=== PATIENT | female | born 1990 | race African-American/Black ===

== ENCOUNTER 2020-04-09 13:15 | Emergency (ER) | payer OTHER, SELFPAY ==
[2020-04-09 13:27] VITALS: BP 147/96; PULSE 90; RESP 16; TEMP 36.6; O2SAT 100; BMI 21.9
--- NOTE | 2020-04-09 13:36 | ED_ITS ---
HPI - Female Genitourinary General Chief complaint: Urogenital-Female Stated complaint: bladder infection? Time Seen by Provider: 04/09/20 13:34 History of Present Illness HPI Narrative: Patient complains of 2 weeks of irritation with urination meaning it hall she is going more frequently and the only discomfort is during urination, there is no fever no nausea no vomiting, no blood in the urine, no abdominal pain or back pain, no recent illness This is been going on for 2 weeks and it is mild and she has not tried any treatments yet Related Data Previous Rx's Medication Instructions Recorded nitrofurantoin monohyd/m-cryst 100 mg PO Q12H 5 Days #10 cap 04/09/20 [Macrobid] phenazopyridine [Pyridium] 200 mg PO TID PRN #6 tab 04/09/20 Allergies Allergy/AdvReac Type Severity Reaction Status Date / Time No Known Allergies Allergy Verified 04/09/20 13:36 Review of Systems Review of Systems: Review of symptom systems is positive for burning with urination and urinary frequency There is no fever no chills no nausea no vomiting no back pain no abdominal pain no pelvic pain no blood in the urine no leg swelling no rash Yes all other systems are reviewed and are negative PMFSH Past Medical History Source: nursing notes reviewed Medical History (Updated 04/09/20 @ 14:35 by RASHAWN Bates) No known health problems Social History Social History Advance Directives: No Advance Directives Information Provided: Yes Physical Exam Vital Signs: Vital Signs: Last Vital Signs Temp 97.8 F 04/09/20 13:27 Pulse 90 04/09/20 13:27 Resp 16 04/09/20 13:27 BP 147/96 H 04/09/20 13:27 Pulse Ox 100 04/09/20 13:27 Body Mass Index 21.9 Elevated blood pressure is noted Patient is comfortable, a and O x3, no acute distress The neck is supple respiratory there is no respiratory distress abdomen is soft and nontender the back there is no CVA tenderness the skin exam there is no rashes Extremities there is no edema The neuro is A&O x3 no focal deficits MDM - Female Genitourinary Lab Data Attestation: I reviewed the patient's lab results. Lab results narrative: UCG and urinalysis were negative, but because patient had classic UTI symptoms I will treat with Macrobid and Pyridium as well as added a chlamydia test Patient is advised to follow with primary doctor for further evaluation of dysuria and for evaluation of possible high blood pressure Labs: Lab Results 04/09/20 04/09/20 Range/Units 13:41 14:00 Urine Color STRAW Urine Appearance CLEAR Urine pH 6.5 (5.0-8.0) Ur Specific [place] 1.010 (1.005-1.025) Urine Protein NEG (NEG-TRACE) MG/DL Urine Glucose (UA) NEG (NEG) MG/DL Urine Ketones NEG (NEG) MG/DL Urine Blood TRACE (NEG) Urine Nitrite NEG (NEG) Ur Leukocyte Esterase NEG (NEG) Urine RBC 0-2 (0) /HPF Urine WBC 0-2 (0-4) /HPF Ur Squamous Epith Cells 1+ /LPF Urine Bacteria NONE /LPF Urine Test NEGATIVE (NEGATIVE) Discharge Plan Discharge Clinical Impression: Dysuria Patient Disposition: Home, Self-Care Additional Instructions: Your urine test did not show lab evidence of a urinary tract infection but because you have classic symptoms we are treating with antibiotic and a medication Pyridium which often relieves bladder discomfort Return any time for vomiting fever any worse condition or any concerns Your blood pressure was elevated today so we advise follow with the primary care doctor for further evaluation as well as recommend get a home blood pressure cuff and keep a log of the readings which will help determine whether or not you actually have high blood pressure Prescriptions: New nitrofurantoin monohyd/m-cryst [Macrobid] 100 mg capsule 100 mg PO Q12H 5 Days Qty: 10 RF: 0 phenazopyridine [Pyridium] 200 mg tablet 200 mg PO TID PRN (Reason: pain with urination) Qty: 6 RF: 0 Interventions: ED Discharge Assessment Last Done: 04/09/20 14:46 Discharge Date/Time: 04/09/20 14:46
[2020-04-09 13:51] LABS: Glucose Urine UA NEG (NEG); Leukocyte Esterase Urine NEG (NEG); Nitrite Urine NEG (NEG); PH 6.5 (5.0-8.0); Urine Blood TRACE (NEG); Urine Ketones NEG (NEG); Urine Protein NEG (NEG-TRACE)
[2020-04-09 13:52] LABS: Appearance Urine CLEAR; Color Urine STRAW
[2020-04-09 14:05] LABS: UPreg QC Valid YES; Urine Pregnancy NEGATIVE (NEGATIVE)
[2020-04-09 14:07] LABS: RBC Urine 0-2 /HPF (0); Squamous Epithelial Cell Urine 1+ /LPF; WBC Urine 0-2 /HPF (0-4)
[2020-04-09 17:41] LABS: CT PCR NOT DETECTED (Not Detect.); NG PCR NOT DETECTED (Not Detect.)
== END 2020-04-09 14:46 | disposition home or self-care (01) ==
PROVIDERS: Physician Assistant Medical; Emergency Provider Emergency Medicine
DX: R30.0 Dysuria (principal); Z79.899 Other long term (current) drug therapy
CPT/HCPCS: 81001; 81025; 87491; 87591; 99283

== ENCOUNTER 2021-09-13 08:38 | Emergency (ER) | payer OTHER, SELFPAY ==
[2021-09-13 09:01] VITALS: BP 131/87; PULSE 89; RESP 16; TEMP 36.8; O2SAT 100; BMI 26.6
--- NOTE | 2021-09-13 09:20 | ED_ITS ---
HPI - Female Genitourinary General Chief complaint: Urogenital-Female Stated complaint: bladder infection Time Seen by Provider: 09/13/21 08:59 Source: patient Mode of arrival: ambulatory Limitations: no limitations History of Present Illness HPI Narrative: 31-year-old female with history of frequent urinary tract infections presents to the ER with complaints of having a bladder infection. She reports 3 weeks of dysuria, foul-smelling urine, urinary frequency and voiding only small amounts. She also developed low back pain intermittently as well and is concerned the infection may have gone to her kidneys because her symptoms have been present for so long. She denies fever, nausea, vomiting, chills, abdominal pain. She reports a history of urinary tracts, more frequent than I can count. She has never seen a urologist and has never been on prophylaxis before. She states it usually occurs after sexual activity despite or urinating after sex. She denies any vaginal discharge or concern for STI. MD elicited complaint: UTI Pertinent past history: recurrent UTIs Onset (ago): week(s) (3) Location of symptoms: external genitalia and suprapubic Severity: moderate Female Urogenital Radiation: Non-Radiating Severity scale (1-10): 5 Quality of pain: burning Consistency: intermittent Vaginal discharge: none Vaginal bleeding: none Urinary symptoms: Dysuria, Urgency, Frequency and Foul Smelling Urine Exacerbating factors: urination Relieving factors: none Associated symptoms: back pain Treatment prior to arrival: none Sexual activity: Yes Patient : No Related Data Previous Rx's Medication Instructions Recorded nitrofurantoin 100 mg PO Q12H 5 Days #10 cap 04/09/20 monohydrate/macrocrystals 100 mg capsule (Macrobid) phenazopyridine 200 mg tablet 200 mg PO TID PRN #6 tab 04/09/20 (Pyridium) nitrofurantoin 100 mg PO Q12H 7 Days #14 cap 09/13/21 monohydrate/macrocrystals 100 mg capsule (Macrobid) Allergies Allergy/AdvReac Type Severity Reaction Status Date / Time No Known Allergies Allergy Verified 04/09/20 13:36 Review of Systems Review of Systems: Constitutional: No Fever, No Chills Cardiovascular: No Chest Pain, No SOB Respiratory: No Cough, No Sputum Gastrointestinal: No Nausea, No Vomiting, No Diarrhea, No abdominal Pain Genitourinary: + Dysuria, + Urinary Frequency, No Hematuria Musculoskeletal: No joint pain, No Myalgias Skin: No Skin Lesions, No rash Neuro: No Weakness, No Dizziness, No Headache Psych: No Anxiety/Panic, No Depression Heme/Lymph: No Bruising, No Lymphadenopathy Endocrine: No Polyuria, No Polydipsia [facility] Past Medical History Medical History (Updated 09/13/21 @ 10:03 by RASHAWN Lott) No known health problems UTI (urinary tract infection) Social History Social History Advance Directives: No Advance Directives Information Provided: No Patient : No Physical Exam Vital Signs: Vital Signs: Last Vital Signs Temp 98.2 F 09/13/21 09:01 Pulse 89 09/13/21 09:01 Resp 16 09/13/21 09:01 BP 131/87 09/13/21 09:01 Pulse Ox 100 09/13/21 09:01 BMI result Body Mass Index 26.6 Appearance: Alert. Oriented X3. No acute distress. HEENT: normal external inspection Neck: Normal inspection. Neck supple. CVS: Normal heart rate and rhythm. Pulses normal. Respiratory: No respiratory distress. Abdomen: Soft and nontender. +BS x4. Pelvic deferred. Skin: Skin warm and dry. Normal skin color. Normal skin turgor. No rashes. Extremities: Normal inspeciton Neuro: Oriented X 3. Grossly normal nonfocal Course Course Course Narrative: 31-year-old female presents to the ER with 3 weeks of urinary symptoms. She states it feels similar to her prior UTIs. She has no systemic signs of infection like fever chills nausea or vomiting. She has no abdominal pain. She is appears well on examination. Will send UA for further evaluation. Reevaluation(s) Reevaluation #1: UA showing positive nitrites. Will treat with Macrobid, she has gotten this in the past with good success. Will also refer to urology given her frequent and recurrent UTIs. MDM - Female Genitourinary Lab Data Labs: Lab Results 09/13/21 Range/Units 09:20 Urine Color YELLOW Urine Appearance HAZY Urine pH 6.0 (5.0-8.0) Ur Specific [place] 1.025 (1.005-1.025) Urine Protein NEG (NEG-TRACE) MG/DL Urine Glucose (UA) NEG (NEG) MG/DL Urine Ketones NEG (NEG) MG/DL Urine Blood TRACE (NEG) Urine Nitrite POS H (NEG) Ur Leukocyte Esterase NEG (NEG) Urine RBC 1-4 (0) /HPF Urine WBC 1-4 (0-4) /HPF Ur Squamous Epith Cells 4+ /LPF Urine Bacteria 4+ /LPF Critical Care Time Critical Care Time Critical Care Time: No Discharge Plan Discharge Clinical Impression: Urinary tract infection Patient Disposition: Home, Self-Care Instructions: Urinary Tract Infection in Women (DC) Additional Instructions: Take the prescribed antibiotic as directed, complete the entire course. Recommend following up with Urology for further evaluation of your recurrent urinary tract infections. Prescriptions: New nitrofurantoin monohyd/m-cryst [Macrobid] 100 mg capsule 100 mg PO Q12H 7 Days Qty: 14 0RF Rx Instructions: must administer with a meal/food No Action nitrofurantoin monohyd/m-cryst [Macrobid] 100 mg capsule 100 mg PO Q12H 5 Days Qty: 10 0RF Rx Instructions: must administer with a meal/food phenazopyridine [Pyridium] 200 mg tablet 200 mg PO TID PRN (Reason: pain with urination) Qty: 6 0RF Referrals: Bakari Cordova MD [Physician] - 2 weeks (recurrent UTIs)
[2021-09-13 09:29] LABS: Appearance Urine HAZY; Color Urine YELLOW; Glucose Urine UA NEG (NEG); Leukocyte Esterase Urine NEG (NEG); Nitrite Urine POS (NEG); Specific Gravity - Urine 1.025 (1.005-1.025); UACC Culture Trigger YES; Urine Blood TRACE (NEG); Urine Ketones NEG (NEG); Urine Protein NEG (NEG-TRACE)
[2021-09-13 09:39] LABS: Squamous Epithelial Cell Urine 4+ /LPF
[2021-09-13 09:40] LABS: Bacteria Urine 4+ /LPF
== END 2021-09-13 10:22 | disposition home or self-care (01) ==
PROVIDERS: Physician Assistant; Emergency Provider Emergency Medicine; PCP Internal Medicine
DX: N39.0 Urinary tract infection, site not specified (principal); R30.0 Dysuria; M54.50 Low back pain, unspecified; Z79.899 Other long term (current) drug therapy
CPT/HCPCS: 81001; 87086; 87088; 87186; 99283; 99284

== ENCOUNTER 2022-09-30 09:30 | Outpatient (REF) | payer OTHER, SELFPAY ==
[2022-09-30 09:55] LABS: MANUAL DIFF FLAG NO
[2022-09-30 10:39] LABS: Basophils Percent Auto 0.3 % (0-2); Eosinophils Absolute Auto 0.1 X10*3/uL (0.0-0.4); Eosinophils Percent Auto 1.8 % (0-4); Hematocrit 37.2 % (37.0-47.0); Hemoglobin 12.6 g/dl (12.0-16.0); Imm Gran Abs Auto 0.01 X10*3/uL (0.00-0.03); Imm Gran Pct Auto 0.3 % (0.0-0.4); Lymphocytes Absolute Auto 1.4 X10*3/uL (1.2-4.9); Lymphocytes Percent Auto 34.5 % (20-40); Mean Corpuscular HGB Conc 33.9 g/dl (31.0-35.0); Mean Corpuscular Hemoglobin 30.7 pg (27.0-33.0); Mean Corpuscular Volume 90.5 fL (80.0-98.0); Mean Platelet Volume 10.3 fL (9.4-12.3); Monocytes Absolute Auto 0.3 X10*3/uL (0.1-1.2); Monocytes Percent Auto 8.6 % (2-11); Neutrophils Absolute Auto 2.2 x10*3/uL (2.0-8.3); Neutrophils Percent Auto 54.5 % (45-73); Platelet Count 267 X10*3/uL (160-400); Red Blood Count 4.11 X10*6/uL (4.20-5.50); Red Cell Distribution Width 12.6 % (11.0-16.0); White Blood Count 3.9 X10*3/uL (4.8-10.8)
[2022-09-30 11:57] LABS: HBS Num1 158.99 mIU/mL (0-7.99); HBc Num1 0.08 S/CO (0.00-0.79); HBsAGNum1 0.34 S/CO (0.00-0.99); HIV AB/AG Nonreactive (Nonreactive); HIV Num 1 0.07 S/CO (0.00-0.99); Hepatitis A Antibody IgM 0.16 Index (0-0.79); Hepatitis B Core Antibody Nonreactive (Nonreactive); Hepatitis B Surface Antigen Negative (Negative); ~HepC Num1 0.14 S/CO (0.00-0.79); ~Hepatitis A Antibody IgM Nonreactive (Nonreactive); ~Hepatitis B Surface Antibody REACTIVE (Nonreactive); ~Hepatitis C Antibody Nonreactive (Nonreactive)
[2022-09-30 12:00] LABS: Syphilis Screen Reactive (Nonreactive)
[2022-09-30 12:31] LABS: Alanine Aminotransferase 23 U/L (0-31); Albumin Level 4.5 g/dL (3.5-5.0); Alkaline Phosphatase 55 U/L (39-117); Anion Gap 12 (12-20); Aspartate Amino Transferase 27 U/L (5-31); Bilirubin Total 0.7 mg/dL (0.0-1.0); Blood Urea Nitrogen 7 mg/dL (9-16); Calcium 9.7 mg/dL (8.4-10.2); Carbon Dioxide 26 mmol/L (22-29); Chloride 106 mmol/L (96-108); Cholesterol 175 mg/dL; Estimated Glomerular Filt Rate > 60; Glucose Fasting 102 mg/dL (60-99); HDL Cholesterol 63 mg/dL; LDL Cholesterol Calculated 99 mg/dl; Potassium 4.2 mmol/L (3.3-5.1); Sodium 140 mmol/L (135-145); Triglycerides 66 mg/dL
[2022-10-05 14:24] LABS: RPR Quantitative Non-Reactive (Nonreactive)
[2022-10-05 14:25] LABS: T.Pallidum Particle Agg Test Non-Reactive (Nonreactive)
== END 2022-09-30 09:31 | disposition home or self-care (01) ==
LOC: HO.LAB 09:30
PROVIDERS: PCP Internal Medicine; Visit Provider Internal Medicine
DX: Z00.00 Encounter for general adult medical examination without abnormal findings (principal); Z11.3 Encounter for screening for infections with a predominantly sexual mode of transmission; Z11.4 Encounter for screening for human immunodeficiency virus [HIV]; N92.6 Irregular menstruation, unspecified
CPT/HCPCS: 36415; 80053; 80061; 85025; 86592; 86704; 86706; 86709; 86780; 86803; 87340; 87389

== ENCOUNTER 2023-01-30 12:43 | Outpatient (AMB) | payer OTHER, SELFPAY ==
[2023-01-30 12:59] VITALS: BMI 23.6
--- NOTE | 2023-01-30 12:59 | MHC.OFFVIS ---
Intake Vital Signs 01/30/23 12:59 Height 5 ft 6 in Weight 146 lb BMI 23.6 Intake Visit Reasons: New patient Annual/DO NOT RS Intake Note: pain with intercourse she says it's uncomfortable. Store Consultant Required: No Information Interpreted: non-clinical & clinical Email Deployment Specialist: Email Deployment Specialist Present ([employer]) Allergies No Known Allergies Allergy (Verified 01/30/23 13:02) Medication List - Last Reconciled 01/30/23 by Lakisha Francois CNM No Known Home Meds Is last menstrual period known: Yes Last menstrual period: 01/25/23 Post menopausal: No HPI New patient Annual/DO NOT RS HPI Details Patient is here for gynaecological oncologist annual exam she used to get her gynaecological oncologist care in the [place] area. She has 1 child who delivered here at [facility] 11 years ago. She is sexually active but she uses condoms for control. She would like STI testing though she is not particularly concerned she did have STI testing with Dr. Elkins in September and had a positive screen for syphilis but the confirmatory test came back negative which confused her she. She also has a history of HSV though not for several years she maybe gets 1 outbreak a year now she usually calls for prescription she does not have any Valtrex at the moment. She just got over her. She has never had an abnormal Pap smear.. Was concerned about her left breast sometimes when she takes her bra off she notes that the skin puckers in a certain way but then after few minutes it looks like the other breast again she does not have any masses that she can palpate. [facility] Medical History (Updated 01/30/23 @ 13:53 by Lakisha Francois CNM) No known health problems Overweight (BMI 25.0-29.9) Physical exam UTI (urinary tract infection) Surgical History No pertinent past surgical history Family History Mother Anxiety Mental health disorder Essential hypertension Father No problems noted. Social History Housing: Apartment Alcohol intake: current Alcohol intake frequency: a few times a month Alcohol type: hard liquor Patient Tobacco Use Status: Current everyday Tobacco user Tobacco use type: Cigarette Cigarettes Per Day: 2 e-Cigarette/Vaping Use: Never Used Second Hand Smoke Exposure: No service: No Current occupational status: employed Current occupational exposures/hazards: No Cognitive needs: No Hearing needs: No Vision needs: No Female Reproductive History Menstrual Age of Menarche: 12 Duration of menses: 6-7 days Date of last menstrual period: 01/25/23 control method: none Total pregnancies: 1 Full term: 1 Number of Living Children: 1 Date of last pap smear: 09/29/13 (negative) History of STI: Yes Physical Exam Vital Signs: BMI result Body Mass Index 23.6 Const General: healthy appearing, comfortable, no acute distress, well developed and alert Nutritional Appearance: average body habitus Orientation/consciousness: patient oriented x3 Limitations: no limitations HEENT Head: Yes normocephalic Neck Neck: Yes normal visual inspection Chest Chest palpation & inspection: normal inspection of the chest Breast/axilla inspection: normal inspection of the breasts and normal inspection of the axillae Breast/axilla palpation: normal palpation of the breasts and normal palpation of the axillae Resp Effort & Inspection: normal respiratory effort GI Inspection: Yes normal to inspection, No Abdominal wall edema and No distended Palpation (GI): Soft to palpation and nontender Other: External exam within normal limits vagina pink moist normally rugated cervix is multiparous midposition to anteverted uterus is retroverted mobile nontender adnexa nontender good tone with Kegel normal scant clear mucus. General: Yes bladder normal to palpation External Female Exam: normal external appearance and normal appearance of the urethra Speculum Exam - Vagina: normal appearance of the vagina, normal palpation and normal vaginal discharge Speculum Exam - Cervix: normal appearance of the cervix, normal palpation and nontender Bimanual exam- vagina & uterus: normal bimanual exam, normal palpation, uterine size normal, bladder normal to palpation, consistency normal, normal palpation, uterine mobility normal, uterine shape normal, No Cervical tenderness present, non-tender and no cervical motion tenderness Bimanual Exam- Adnexa, other: normal adnexae, no masses, normal and No adnexal tenderness Neuro General: patient oriented x3 Assessment & Plan Assessment & Plan (1) Screen for STD (sexually transmitted disease): Code(s): Z11.3 - Encounter for screening for infections with a predominantly sexual mode of transmission (2) Screening for cervical cancer: Code(s): Z12.4 - Encounter for screening for malignant neoplasm of cervix (3) Recurrent HSV (herpes simplex virus): Comment: occ , maybe 1/yr, rx valtrex prn Code(s): B00.9 - Herpesviral infection, unspecified (4) Syphilis: Comment: Confirmatory test was negative. Reviewed with patient. Code(s): A53.9 - Syphilis, unspecified (5) Overweight (BMI 25.0-29.9): Comment: Has lost weight; is now within normal BMI range Code(s): E66.3 - Overweight (6) Breast cancer screening: Comment: Patient occasionally gets puckering after checking brought off but it reverts to normal soon after. No masses palpated no puckering today. Patient will keep an eye on changes and call for concerns. Code(s): Z12.39 - Encounter for other screening for malignant neoplasm of breast Plan -----Discussed in this visit the following: healthy balanced diet, regular and consistent exercise, getting recommended health screens, doing the best she can for her particular health concerns, kegel exercises, pap smear screening and followup recommendations, mammography screening and SBE, normal changes in cycles in her life stage--- . Reviewed her previous positive tPA and negative RPR testing for syphilis and reviewed that this means the confirmatory test was negative. Reviewed her history of HSV it is a rare occurrence for an outbreak perhaps once a year now reviewed that she may take Valtrex for 3-5 days depending on how long the outbreak lasts and I sent a prescription for 30 tablets that she can have at her despite bows all for p.r.n. use. Reviewed that condoms are in fact a method of control and can work very well when used consistently and they help protect her from STIs as well. Reviewed her concerns about her breasts. Careful exam was done revealing bilaterally is similar and symmetrical breast tissue firmer in the upper right outer quadrant further left breast and the upper left outer quadrant for the right breast both feel symmetrical within normal limits and there is no undue skin puckering or peau de orange changes or masses. Patient is going to keep an eye on what she experiences and take a picture of it and if something does not resolve she will call either us or her primary to have it evaluated. Orders: Orders Hepatitis B Surface Antigen Today Z11.3 - Encounter for screening for infections with a predominantly sexual mode of transmission, Z12.4 - Encounter for screening for malignant neoplasm of cervix Hepatitis C Antibody Today Z11.3 - Encounter for screening for infections with a predominantly sexual mode of transmission, Z12.4 - Encounter for screening for malignant neoplasm of cervix HIV Ab/Ag Today Z11.3 - Encounter for screening for infections with a predominantly sexual mode of transmission, Z12.4 - Encounter for screening for malignant neoplasm of cervix Syphilis Screen Today Z11.3 - Encounter for screening for infections with a predominantly sexual mode of transmission, Z12.4 - Encounter for screening for malignant neoplasm of cervix Bacterial Vaginosis Panel Today [id number] - Encounter for gynecological examination (general) (routine) without abnormal findings CT NG by PCR Today [id number] - Encounter for gynecological examination (general) (routine) without abnormal findings Pap Smear Today [id number] - Encounter for gynecological examination (general) (routine) without abnormal findings Medications: New valacyclovir take for 3-5 days for outbreaks 1,000 mg PO DAILY 30 tabs 0RF Coding Level of Care Code New Pt Prev Care [id number] Diagnoses Screen for STD (sexually transmitted disease) Z11.3 Screening for cervical cancer Z12.4 Recurrent HSV (herpes simplex virus) B00.9 Syphilis A53.9 Overweight (BMI 25.0-29.9) E66.3 Breast cancer screening Z12.39
== END 2023-01-30 13:53 | disposition home or self-care (01) ==
PROVIDERS: Visit Provider Advanced Practice Midwife
DX: Z01.419 Encounter for gynecological examination (general) (routine) without abnormal findings (principal); Z11.3 Encounter for screening for infections with a predominantly sexual mode of transmission; B00.9 Herpesviral infection, unspecified; A53.9 Syphilis, unspecified; E66.3 Overweight; Z12.39 Encounter for other screening for malignant neoplasm of breast
CPT/HCPCS: 99385

== ENCOUNTER 2023-01-30 12:43 | Outpatient (REF) | payer OTHER, SELFPAY ==
[2023-01-31 09:43] LABS: CT PCR NOT DETECTED (Not Detect.); NG PCR NOT DETECTED (Not Detect.)
[2023-01-31 12:07] LABS: BV Int Neg Control Negative (Negative); BV Int Pos Control Positive (Positive)
[2023-02-04 18:49] LABS: HPV mRNA E6/E7 rflx Not Detected (Not Detected)
== END 2023-01-30 12:44 | disposition home or self-care (01) ==
LOC: HO.LNP 12:43
PROVIDERS: Visit Provider Advanced Practice Midwife
DX: Z01.419 Encounter for gynecological examination (general) (routine) without abnormal findings (principal); Z11.51 Encounter for screening for human papillomavirus (HPV); Z11.3 Encounter for screening for infections with a predominantly sexual mode of transmission
CPT/HCPCS: 0353U; 87480; 87510; 87624; 87660; 88142

== ENCOUNTER 2023-01-30 13:57 | Outpatient (REF) | payer OTHER, SELFPAY ==
[2023-01-30 14:16] LABS: MANUAL DIFF FLAG NO
[2023-01-30 14:24] LABS: Basophils Percent Auto 0.2 % (0-2); Eosinophils Percent Auto 0.8 % (0-4); Hematocrit 38.7 % (37.0-47.0); Hemoglobin 13.6 g/dl (12.0-16.0); Imm Gran Abs Auto 0.01 X10*3/uL (0.00-0.03); Imm Gran Pct Auto 0.2 % (0.0-0.4); Lymphocytes Absolute Auto 1.4 X10*3/uL (1.2-4.9); Lymphocytes Percent Auto 28.7 % (20-40); Mean Corpuscular HGB Conc 35.1 g/dl (31.0-35.0); Mean Corpuscular Hemoglobin 31.1 pg (27.0-33.0); Mean Corpuscular Volume 88.6 fL (80.0-98.0); Mean Platelet Volume 9.8 fL (9.4-12.3); Monocytes Absolute Auto 0.3 X10*3/uL (0.1-1.2); Monocytes Percent Auto 6.6 % (2-11); Neutrophils Absolute Auto 3.2 x10*3/uL (2.0-8.3); Neutrophils Percent Auto 63.5 % (45-73); Platelet Count 336 X10*3/uL (160-400); Red Blood Count 4.37 X10*6/uL (4.20-5.50); Red Cell Distribution Width 13.2 % (11.0-16.0)
[2023-01-31 08:11] LABS: HBsAGNum1 0.37 S/CO (0.00-0.99); HIV AB/AG Nonreactive (Nonreactive); HIV Num 1 0.06 S/CO (0.00-0.99); Hepatitis B Surface Antigen Negative (Negative); ~HepC Num1 0.11 S/CO (0.00-0.79); ~Hepatitis C Antibody Nonreactive (Nonreactive)
[2023-01-31 08:32] LABS: Syphilis Screen Reactive (Nonreactive)
[2023-02-09 14:54] LABS: RPR Quantitative Non-Reactive (Nonreactive); T.Pallidum Particle Agg Test Non-Reactive (Nonreactive)
== END 2023-01-30 13:58 | disposition home or self-care (01) ==
LOC: HO.LAB 13:57
PROVIDERS: PCP Internal Medicine; Visit Provider Advanced Practice Midwife
DX: Z11.3 Encounter for screening for infections with a predominantly sexual mode of transmission (principal); Z11.4 Encounter for screening for human immunodeficiency virus [HIV]; D64.9 Anemia, unspecified
CPT/HCPCS: 0353U; 36415; 85025; 86592; 86780; 86803; 87340; 87389